=== PATIENT | female | born 1970 | race Caucasian/White ===

== ENCOUNTER → 2018-01-13 | Outpatient (CLI) | payer MEDICARE, OTHER ==
[2018-01-13 14:45] LABS: HCT 43.7 % (34.0-46.0); HGB 14.3 gm/dL (11.4-16.0); MCH 30.4 pg (25.0-35.0); MCHC 32.6 g/dL (31.0-37.0); MCV 93.1 fL (80.0-100.0); Mean Platelet Volume 6.3; Platelet Count 434 k/uL (150-450); RBC 4.69 m/uL (3.80-5.40); RDW 14.5 % (11.5-15.5); WBC 11.4 k/uL (3.8-10.6)
--- NOTE | 2018-01-13 14:57 | US ---
EXAMINATION TYPE: US thyroid st tissue head/neck DATE OF EXAM: 01/13/2018 COMPARISON: NONE CLINICAL HISTORY: 47-year-old female E03.9 HYPOTHYROIDISM. left lateral anterior neck pain, on thyroi d meds x 3 months TECHNIQUE: Multiple sonographic images of the thyroid gland are obtained. FINDINGS: GLAND SIZE: Right Lobe: 4.6 x 1.5 x 1.4 cm Overall Parenchyma: homogenous Left Lobe: 4.1 x 1.5 x 1.4 cm Overall Parenchyma: homogeneous Isthmus Thickness: 0.3 cm Bilateral homogeneous tissue; no nodules seen. Bilateral neck scanned, no evidence of lymphadenopath y. No ultrasound abnormality at the site of patient's complaint of pain along the left anterior lateral neck. IMPRESSION: Homogeneous thyroid gland without discrete nodule. Additional scanning of the left lateral and anteri or neck along the site of patient's pain shows no abnormality.
[2018-01-13 15:23] LABS: T4, Free (Free Thyroxine) 0.83 ng/dL (0.78-2.19)
[2018-01-13 18:58] LABS: Iron Saturation 17.48 (12.00-45.00)
[2018-01-13 19:05] LABS: Thyroid Peroxidase Antibodies 38.7 U/mL (0.0-60.0)
[2018-01-13 19:12] LABS: Vitamin D 25 Hydroxy 10.3 ng/mL (30.0-100.0)
[2018-01-13 22:45] LABS: ACTH 11.2 pg/mL (0.00-45.99)
== END | disposition home or self-care (01) ==
LOC: RADUSWWP 14:15
PROVIDERS: ATTEND Internal Medicine Endocrinology, Diabetes & Metabolism
DX: E03.9 Hypothyroidism, unspecified (principal)
CPT/HCPCS: 76536; 82024; 82306; 82533; 82607; 83540; 83550; 84146; 84439; 84443; 84481; 85027; 86376

== ENCOUNTER → 2018-01-13 | Outpatient (CLI) | payer MEDICARE, OTHER | END | disposition home or self-care (01) | LOC: LABWHC1 14:08 | PROVIDERS: ATTEND Internal Medicine Endocrinology, Diabetes & Metabolism | DX: R53.83 Other fatigue (principal); Z53.9 Procedure and treatment not carried out, unspecified reason ==

== ENCOUNTER 2021-10-27 19:36 | Emergency (ER) | payer MEDICARE, OTHER ==
[2021-10-27 19:59] VITALS: TEMP 98.1
[2021-10-27] MEDS ORDERED: NALOXONE 0.4 MG/ML 1 ML VIAL IV PRN (20:00)
[2021-10-27] MEDS ORDERED: SODIUM CHLORIDE 0.9% 1,000 ML IV SCH (20:00)
[2021-10-27] MEDS ORDERED: HYDROmorphone 1 MG/ML 1 ML SYRINGE IVP PRN (20:00)
[2021-10-27] MEDS ORDERED: HYDROmorphone 0.5 MG/0.5 ML SYRINGE IVP PRN (20:00)
[2021-10-27] MEDS ORDERED: traMADol 50 MG TAB PO PRN (20:00)
[2021-10-27] MEDS ORDERED: ONDANSETRON 4 MG/2 ML VIAL IVP PRN (20:00)
[2021-10-27] MEDS ORDERED: ACETAMINOPHEN TAB 325 MG TAB PO PRN (20:00)
--- NOTE | 2021-10-27 20:00 | ED ---
General Adult HPI - General Chief complaint: Abdominal Pain Stated complaint: Abdominal pain Time Seen by Provider: 10/27/21 19:44 Source: patient, RN/MD, EMS, RN notes reviewed, old records reviewed Mode of arrival: EMS Limitations: no limitations - History of Present Illness Initial comments: Patient is a pleasant 51-year-old female presenting to the emergency department with concerns with abdominal pain. Symptoms are several days ago. Patient did go to [facility] yesterday. I did speak with her transferring physician who diagnosed patient with colitis. No abscesses. Patient was given steroids and white, was 15 at that time. Patient did have an episode of blood and stool several days prior to that. Patient returns today with increase in abdominal discomfort and white count increasing 23. Acute abdominal series was negative. Patient was given a gram of Rocephin. They did speak with Dr. Perez who didn't feel patient should be transferred and told them that she would see the patient tomorrow. Patient states discomfort is mild at this time. - Related Data Previous Rx's Medication Instructions Recorded Ciprofloxacin HCl [Cipro] 500 mg PO Q12HR #14 tablet 10/27/21 metroNIDAZOLE [Flagyl] 375 mg PO BID #14 cap 10/27/21 Allergies Allergy/AdvReac Type Severity Reaction Status Date / Time No Known Allergies Allergy Verified 10/27/21 19:56 Review of Systems ROS Statement: Those systems with pertinent positive or pertinent negative responses have been documented in the HPI. ROS Other: All systems not noted in ROS Statement are negative. Constitutional: Denies: fever Eyes: Denies: eye pain ENT: Denies: ear pain Respiratory: Denies: cough Cardiovascular: Denies: chest pain Endocrine: Denies: fatigue Gastrointestinal: Reports: abdominal pain, nausea, vomiting Genitourinary: Denies: dysuria Musculoskeletal: Denies: back pain Skin: Denies: rash Neurological: Denies: weakness Past Medical History Past Medical History: COPD, GERD/Reflux, Hyperlipidemia, Hypertension History of Any Multi-Drug Resistant Organisms: None Reported Past Surgical History: Hernia Repair, Hysterectomy Additional Past Surgical History / Comment(s): colonoscopy, gastroscopy Past Psychological History: Anxiety, Depression Smoking Status: Current some day smoker Past Alcohol Use History: None Reported Past Drug Use History: None Reported General Exam Limitations: no limitations General appearance: alert, in no apparent distress Head exam: Present: normocephalic Eye exam: Present: normal appearance Neck exam: Present: normal inspection Respiratory exam: Present: normal lung sounds bilaterally Cardiovascular Exam: Present: regular rate, normal rhythm Expanded Peripheral pulses: 2+: Posterior Tibialis (R), Posterior Tibialis (L) GI/Abdominal exam: Present: soft, tenderness (Mild diffuse tenderness), normal bowel sounds. Absent: distended, guarding, rebound, rigid, pulsatile mass Extremities exam: Present: normal inspection Neurological exam: Present: alert Psychiatric exam: Present: normal affect, normal mood Skin exam: Present: normal color Course Vital Signs 10/27/21 19:47 Temperature 98.1 F Pulse Rate 80 Respiratory 16 Rate Blood Pressure 145/75 O2 Sat by Pulse 95 Oximetry Medical Decision Making - Medical Decision Making Patient updated on plan. Dr. Pugh has been paged for admission, covering for Dr. Hanna. Upon reevaluation patient is now refusing admission and is requesting discharge. Patient is advised admission however refuses. Patient does demonstrate medical decision making. Patient will need to leave AGAINST MEDICAL ADVICE. Patient does request prescription for Cipro and Flagyl which she has previously had for similar problems. Disposition Clinical Impression: Acute colitis Disposition: Left Against Medical Advice Instructions (If sedation given, give patient instructions): Colitis (ED) Additional Instructions: You are leaving AGAINST MEDICAL ADVICE. Please do follow-up with primary care physician as well as GI in the next day or 2 for recheck. Return for bleeding, increased pain, fever, worsening or changing symptoms or any other concerns. Prescriptions: Ciprofloxacin HCl [Cipro] 500 mg PO Q12HR #14 tablet metroNIDAZOLE [Flagyl] 375 mg PO BID #14 cap Is patient prescribed a controlled substance at d/c from ED?: No Referrals: Juan Hanna MD [Primary Care Provider] - 1-2 days Demi Hobson MD [STAFF PHYSICIAN] - 1-2 days Time of Disposition: 20:49 Decision Time: 19:59
[2021-10-27 21:03] VITALS: BP 136/74; PULSE 82; RESP 18
[2021-10-28] MEDS ORDERED: methylPREDNISolone SOD SUCCI 125 MG/2 ML VIAL IV SCH
[2021-10-28] MEDS ORDERED: AMPICILLIN-SULBACTAM 1.5 GM in SODIUM CHLORIDE 0.9% 50 ML IVPB SCH ×2
[2021-10-28] MEDS ORDERED: PANTOPRAZOLE 40 MG/10 ML VIAL IV SCH (09:00)
== END 2021-10-27 20:53 | disposition left against medical advice (07) ==
LOC: EC 19:36
DX: K52.9 Noninfective gastroenteritis and colitis, unspecified (principal); I10 Essential (primary) hypertension; E78.5 Hyperlipidemia, unspecified; K21.9 Gastro-esophageal reflux disease without esophagitis; J44.9 Chronic obstructive pulmonary disease, unspecified; F32.A Depression, unspecified; F41.9 Anxiety disorder, unspecified; F17.200 Nicotine dependence, unspecified, uncomplicated
CPT/HCPCS: 99284